=== PATIENT | male | born 1985 | race Caucasian/White ===

== ENCOUNTER 2018-08-27 16:47 | Emergency (ER) | payer MEDICAID ==
[~2018-08-27] VITALS: Ht 175.3 cm; Wt 72.6 kg
--- NOTE | 2018-08-27 17:09 | NUR ---
DR GONZALEZ AT THE BEDSIDE FOR MSE.
[2018-08-27] MEDS ORDERED: KETOROLAC TROMETHAMINE 30 MG INJ IM ONE (17:15)
[2018-08-27] MEDS ORDERED: KETOROLAC TROMETHAMINE 30 MG INJ ONE (17:15)
[2018-08-27 18:26] VITALS: BP 131/77
--- NOTE | 2018-08-27 18:30 | NUR ---
Patient discharged to home in stable conditon. Written and verbal after care instructions given. Patient verbalizes understanding of instructions.
== END 2018-08-27 18:30 | disposition home or self-care (01) ==
LOC: ER 16:49
DX: S09.90XA Unspecified injury of head, initial encounter (principal); M54.2 Cervicalgia; M54.9 Dorsalgia, unspecified; R07.89 Other chest pain; V48.6XXA Car passenger injured in noncollision transport accident in traffic accident, initial encounter; Y93.89 Activity, other specified; Y92.410 Unspecified street and highway as the place of occurrence of the external cause; Y99.8 Other external cause status
CPT/HCPCS: 71101; 72040; 96372; 99283; J1885; A4663